=== PATIENT | female | born 1975 | race Caucasian/White ===

== ENCOUNTER → 2023-08-31 16:05 | Outpatient (REF) | payer BC, OTHER, SELFPAY | LOC: WDC 16:05 | PROVIDERS: ATTENDING PHYSICIAN Obstetrics & Gynecology | DX: Z12.31 Encounter for screening mammogram for malignant neoplasm of breast (principal) | CPT/HCPCS: 77063; 77067 ==

== ENCOUNTER → 2023-09-19 08:35 | Outpatient (REF) | payer OTHER, SELFPAY | LOC: HWRAD 08:35 | PROVIDERS: ATTENDING PHYSICIAN Obstetrics & Gynecology | DX: N83.209 Unspecified ovarian cyst, unspecified side (principal) | CPT/HCPCS: 76830; 76856 ==

== ENCOUNTER → 2023-09-27 10:52 | Outpatient (REF) | payer OTHER, SELFPAY | LOC: WDC 10:52 | PROVIDERS: ATTENDING PHYSICIAN Obstetrics & Gynecology | DX: R92.2 Inconclusive mammogram (principal); N60.02 Solitary cyst of left breast | CPT/HCPCS: 76641 ==

== ENCOUNTER → 2025-04-09 13:47 | Outpatient (REF) | payer OTHER, SELFPAY | LOC: HWWDC 13:47 | PROVIDERS: ATTENDING PHYSICIAN Obstetrics & Gynecology; REFERRING PHYSICIAN Obstetrics & Gynecology | DX: Z12.31 Encounter for screening mammogram for malignant neoplasm of breast (principal) | CPT/HCPCS: 77063; 77067 ==